=== PATIENT | male | born 1950 | race Caucasian/White ===

== ENCOUNTER 2017-08-15 11:27 | Inpatient (IN) | payer OTHER ==
[~2017-08-15] VITALS: Ht 190.5 cm; Wt 128.8 kg
--- NOTE | 2017-08-15 11:27 | NUR ---
[id number] FROM [facility]:SOB, Hx OF PNEUMONIA. ON IV ATB THERAPY. PT HAS BARRON PICC LINE.
[2017-08-15] MEDS ORDERED: Magnesium 1GM/D5W 100ML PREMIX 200 ML IV ONE ×2 (11:35→12:19)
[2017-08-15] MEDS ORDERED: methylPREDNISolone SOD SUCC 125 MG/2ML VIAL IV ONE (12:00)
[2017-08-15] MEDS ORDERED: ALBUTEROL FS 2.5 MG/3 ML VIAL.NEB NEB ONE (12:00)
[2017-08-15] MEDS ORDERED: IPRATROPIUM NEB FS 0.5 MG/2.5 ML AMPUL.NEB NEB ONE (12:00)
[2017-08-15 12:05] LABS: BASOPHILS # (AUTO) 0.1 /CMM (0.0-0.2); BASOPHILS % (AUTO) 1.2 % (0.0-2.0); EOSINOPHILS % (AUTO) 0.2 % (0.0-6.0); HEMATOCRIT 35 % (39-51); HEMOGLOBIN 12.1 g/dL (13.5-17.5); LYMPHOCYTES # (AUTO) 1.1 /CMM (0.8-4.8); LYMPHOCYTES % (AUTO) 13.4 % (20.0-44.0); MEAN CORPUSCULAR HEMOGLOBIN 31 PG (26.0-33.0); MEAN CORPUSCULAR HGB CONC 34 g/dl (31.0-36.0); MEAN CORPUSCULAR VOLUME 90 fL (80-96); MONOCYTES # (AUTO) 0.4 /CMM (0.1-1.30); MONOCYTES % (AUTO) 5.2 % (2.0-12.0); PLATELET COUNT (AUTO) 172 /CMM (150-450); RDW COEFFICIENT OF VARIATION 13.8 (11.5-15.0); RED BLOOD CELL COUNT(AUTO) 3.92 MIL/uL (4.5-6.0); WHITE BLOOD COUNT (AUTO) 8.6 K/uL (4.3-11.0)
[2017-08-15 12:13] LABS: POTASSIUM 3.7 mmol/L (3.5-5.1)
[2017-08-15 12:14] LABS: CREATININE 1.1 mg/dL (0.6-1.3)
[2017-08-15] MEDS ORDERED: methylPREDNISolone SOD SUCC 125 MG/2ML VIAL ONE (12:20)
[2017-08-15 12:22] LABS: TROPONIN I 0.063 ng/mL (0.00-0.056)
[2017-08-15 12:26] LABS: ALBUMIN 2.7 g/dL (3.4-5.0); BILIRUBIN,DIRECT 0.2 mg/dL (0.0-0.2); BILIRUBIN,TOTAL 0.8 mg/dL (0.2-1.0); TOTAL PROTEIN, SERUM 6.2 g/dL (6.4-8.2)
[2017-08-15] MEDS ORDERED: IPRATROPIUM NEB FS 0.5 MG/2.5 ML AMPUL.NEB ONE (12:35)
[2017-08-15] MEDS ORDERED: ALBUTEROL FS 2.5 MG/3 ML VIAL.NEB ONE (12:35)
[2017-08-15] MEDS ORDERED: MORPHINE SULFATE INJ 4 MG/ML DISP.SYRIN ONE (13:27)
[2017-08-15] MEDS ORDERED: ASPIRIN 325 MG TABLET ONE (13:27)
[2017-08-15] MEDS ORDERED: ASPIRIN 325 MG TABLET PO ONE (13:30)
[2017-08-15] MEDS ORDERED: MORPHINE SULFATE INJ 2 MG/ML DISP.SYRIN IV ONE (13:30)
[2017-08-15] MEDS ORDERED: FUROSEMIDE 40 MG/4 ML VIAL IV ONE (14:00)
[2017-08-15] MEDS ORDERED: FUROSEMIDE 40 MG/4 ML VIAL ONE (14:08)
--- NOTE | 2017-08-15 14:56 | NUR ---
DR ASTUDILLO WAS PAGED
[2017-08-15] MEDS ORDERED: INSU100V27 SQ (14:58)
[2017-08-15] MEDS ORDERED: TIOT18CA3 IH (14:58)
[2017-08-15] MEDS ORDERED: CLOP75TA15 PO (14:58)
[2017-08-15] MEDS ORDERED: FENO160T PO (14:58)
[2017-08-15] MEDS ORDERED: AMLO10TA2 PO (14:58)
[2017-08-15] MEDS ORDERED: BUDE10.2 INH (14:58)
[2017-08-15] MEDS ORDERED: FURO-145 PO (14:58)
[2017-08-15] MEDS ORDERED: NYST5ORA PO (14:58)
[2017-08-15] MEDS ORDERED: ISOS30TA6 PO (14:58)
[2017-08-15] MEDS ORDERED: LOSA100T15 PO (14:58)
[2017-08-15] MEDS ORDERED: MORP30TA59 PO ×2 (14:58)
[2017-08-15] MEDS ORDERED: POTA10TA15 PO (14:58)
[2017-08-15] MEDS ORDERED: HYDR-4076 PO (14:58)
[2017-08-15] MEDS ORDERED: RANO10003 PO (14:58)
[2017-08-15] MEDS ORDERED: METH4TAB3 PO (14:58)
[2017-08-15] MEDS ORDERED: POTA10TA21 PO (14:58)
[2017-08-15] MEDS ORDERED: INSU100I30 SQ (14:58)
[2017-08-15] MEDS ORDERED: BUME1TAB4 PO (14:58)
[2017-08-15] MEDS ORDERED: ATOR20TA PO (14:58)
[2017-08-15] MEDS ORDERED: ASPI-1169 PO (14:58)
[2017-08-15] MEDS ORDERED: CARV6.252 PO (14:58)
[2017-08-15] MEDS ORDERED: PANT40TA2 PO (14:58)
[2017-08-15 16:00] VITALS: BP 107/65
[2017-08-15] MEDS ORDERED: DEXTROSE 50%-WATER 50 ML DISP.SYRIN IV PRN (16:00)
[2017-08-15] MEDS ORDERED: MORPHINE SULFATE SR 30 MG TABLET.SA PO SCH ×3 (16:00→16:15)
[2017-08-15] MEDS ORDERED: predniSONE 20 MG TABLET PO SCH (16:00)
[2017-08-15] MEDS ORDERED: LEVALBUTEROL HCL NEB 1.25 MG/0.5 ML VIAL.NEB NEB SCH (16:00)
[2017-08-15] MEDS ORDERED: PANTOPRAZOLE 40 MG TABLET.DR PO SCH ×2 (16:00→16:15)
[2017-08-15] MEDS ORDERED: CLOPIDOGREL BISULFATE 75 MG TABLET PO SCH (16:00)
[2017-08-15] MEDS ORDERED: AMLODIPINE BESYLATE 10 MG TABLET PO SCH (16:00)
[2017-08-15] MEDS ORDERED: ASPIRIN 81 MG TAB.CHEW PO SCH (16:00)
[2017-08-15] MEDS ORDERED: TAMSULOSIN 0.4 MG CAP.SR.24H PO ONE (16:00)
[2017-08-15] MEDS ORDERED: IPRATROPIUM NEB FS 0.5 MG/2.5 ML AMPUL.NEB NEB SCH (16:00)
[2017-08-15] MEDS ORDERED: ISOSORBIDE MONONITRATE (30MG) 30 MG TAB.SR.24H PO SCH (16:00)
[2017-08-15] MEDS ORDERED: ACETAMINOPHEN ES 500 MG TABLET PO PRN (16:00)
--- NOTE | 2017-08-15 16:00 | NUR ---
[facility] COURT REPORTER/ADMISSION NOTES PT. WAS ADMITTED FROM ER IN MEDICALLY STABLE CONDITION. A&OX4. NO S/S OF ACUTE DISTRESS. VITAL SIGNS WNL. WILL PLACE PT. ON TELE MONITOR, AND CONTINUE TO ASSESS AND MONITOR.
[2017-08-15] MEDS ORDERED: CARVEDILOL 6.25 MG TABLET PO SCH ×2 (17:00)
[2017-08-15] MEDS ORDERED: NYSTATIN (PYXIS) 500,000 UNIT/5 ML ORAL.SUSP PO SCH (17:00)
[2017-08-15] MEDS ORDERED: FUROSEMIDE 40 MG/4 ML VIAL IV SCH (17:00)
[2017-08-15] MEDS ORDERED: hydrALAZINE HCL 10 MG TABLET PO PRN (18:00)
[2017-08-15] MEDS ORDERED: PIPERACILLIN /TAZOBACTAM 3.375 G in IV D5W 50 ML IV SCH (18:00)
[2017-08-15] MEDS: NYSTATIN (PYXIS) 500,000 UNIT/5 ML ORAL.SUSP PO SCH ×2 (18:22→21:26)
[2017-08-15] MEDS: FUROSEMIDE 40 MG/4 ML VIAL IV SCH (18:22)
[2017-08-15] MEDS: POTASSIUM CITRATE 5 MEQ TABLET.SA PO SCH (18:24)
[2017-08-15] MEDS: BLOOD SUGAR DIAGNOSTIC 1 EACH STRIP VI SCH ×2 (18:27→21:33)
[2017-08-15] MEDS: INSULIN REGULAR, HUMAN 100 UNIT/ML 3 ML VIAL SQ PRN (18:33)
[2017-08-15] MEDS: TAMSULOSIN 0.4 MG CAP.SR.24H PO SCH (18:51)
[2017-08-15] MEDS: MORPHINE SULFATE SR 30 MG TABLET.SA PO PRN (18:53)
--- NOTE | 2017-08-15 19:30 | NUR ---
INDEPENDENT DRIVER INITIAL NOTES PT IS IN BED AWAKE AND ALERT, ABLE TO MAKE NEEDS KNOWN. ON TELE MONITOR SHOWING SR 79. PT IS BREATHING SHALLOW, WITH NO SIGNS OF DISTRESS ON 2L NC. BARRON PICC LINE INTACT AND PATENT ON SL . BED IS IN LOW AND LOCKED POSITION, CALL LIGHT WITHIN REACH, WILL CONTINUE TO MONITOR PT
[2017-08-15 20:00] VITALS: BP 126/65
--- NOTE | 2017-08-15 20:00 | NUR ---
TALENT ACQUISITION ADMINISTRATOR/CLOSING NOTES PT. IN BED A&OX3. BREATHING UNLABORED ON OXYGEN AT 2L/MIN VIA NASAL CANNULA. NO S/S OF ACUTE DISTRESS. IV ACCESS ON RIGHT UPPER ARM CENTRAL LINE. BED IS IN LOWEST AND LOCKED POSITION. 2 SIDE RAILS UP. CALL LIGHT WITHIN REACH. ALL NEEDS MET. WILL ENDORSE REPORT TO NURSE.
[2017-08-15] MEDS: ALBUTEROL FS 2.5 MG/0.5 ML VIAL.NEB NEB SCH ×2 (20:19→23:43)
[2017-08-15] MEDS: IPRATROPIUM NEB FS 0.5 MG/2.5 ML AMPUL.NEB NEB SCH ×2 (20:19→23:43)
[2017-08-15] MEDS: ATORVASTATIN 10 MG TABLET PO SCH (21:25)
[2017-08-15] MEDS: INSULIN DETEMIR 100 UNIT/ML CARTRIDGE SQ SCH (21:33)
[2017-08-15] MEDS: *INSULIN REGULAR(HUMULIN R)HUM 100 UNIT/ML VIAL SQ PRN (21:36)
[2017-08-15] MEDS: LOSARTAN POTASSIUM 50 MG TABLET PO SCH (21:41)
[2017-08-15] MEDS: PIPERACILLIN /TAZOBACTAM 3.375 G in IV D5W 50 ML IV SCH ×2 (21:41→23:28)
--- NOTE | 2017-08-15 21:45 | NUR ---
MS RN NOTES MACY RUSSO, PT BP TREND ON FLOOR WAS LOW WITH THE HIGHEST AT 126/65. WILL CONTINUE TO MONITOR PT
[2017-08-16] VITALS: BP 143/80
[2017-08-16] MEDS: MORPHINE SULFATE SR 30 MG TABLET.SA PO PRN (02:01)
[2017-08-16 04:00] VITALS: BP 132/68
[2017-08-16] MEDS: PIPERACILLIN /TAZOBACTAM 3.375 G in IV D5W 50 ML IV SCH ×4 (05:47→23:16)
[2017-08-16] MEDS: BLOOD SUGAR DIAGNOSTIC 1 EACH STRIP VI SCH ×4 (05:52→21:15)
[2017-08-16] MEDS: INSULIN REGULAR, HUMAN 100 UNIT/ML 3 ML VIAL SQ PRN (06:13)
--- NOTE | 2017-08-16 06:34 | NUR ---
[facility] REPORTER CLOSING NOTES PT IS IN BED SLEEPING, EASILY AROUSED. ABLE TO MAKE NEEDS KNOWN. DENIES PAIN AT THIS TIME. TELE MONITOR SHOWING SR 72 WITH OCCASIONAL PVC'S. ALL NEEDS WERE ANTICIPATED AND MET. BED IS IN LOW AND LOCKED POSITION, CALL LIGHT WITHIN REACH. WILL ENDORSE TO DAYSHIFT.
[2017-08-16 06:45] LABS: EOSINOPHILS % (AUTO) 0.1 % (0.0-6.0); HEMATOCRIT 32 % (39-51); HEMOGLOBIN 11.2 g/dL (13.5-17.5); LYMPHOCYTES # (AUTO) 0.3 /CMM (0.8-4.8); LYMPHOCYTES % (AUTO) 3.6 % (20.0-44.0); MEAN CORPUSCULAR HEMOGLOBIN 31 PG (26.0-33.0); MEAN CORPUSCULAR HGB CONC 35 g/dl (31.0-36.0); MEAN CORPUSCULAR VOLUME 90 fL (80-96); MONOCYTES # (AUTO) 0.4 /CMM (0.1-1.30); MONOCYTES % (AUTO) 5.2 % (2.0-12.0); NEUTROPHILS # (AUTO) 6.6 /CMM (1.8-8.9); NEUTROPHILS % (AUTO) 91.1 % (43.0-81.0); PLATELET COUNT (AUTO) 146 /CMM (150-450); RDW COEFFICIENT OF VARIATION 13.8 (11.5-15.0); RED BLOOD CELL COUNT(AUTO) 3.58 MIL/uL (4.5-6.0); WHITE BLOOD COUNT (AUTO) 7.3 K/uL (4.3-11.0)
[2017-08-16 07:01] LABS: CALCIUM, SERUM 8.8 mg/dL (8.5-10.1); CREATININE 1.1 mg/dL (0.6-1.3); POTASSIUM 3.8 mmol/L (3.5-5.1)
--- NOTE | 2017-08-16 07:10 | NUR ---
RN NOTES: PATIENT RESTING IN BED. NONLABORED BREATHIGN NOTED ON 2L NASAL CANNULA. NO SIGNS OF DISTRESS NOTED. PATIENT AOX4. PATIENT ON TELE SINUS WITH PVCS. BED IN LOWEST LOCKED POSITION. CALL LIGHT WITHIN REACH. WILL CONTINUE TO MONITOR
[2017-08-16 07:15] LABS: ALBUMIN 2.5 g/dL (3.4-5.0); BILIRUBIN,TOTAL 0.6 mg/dL (0.2-1.0); TOTAL PROTEIN, SERUM 6.1 g/dL (6.4-8.2)
[2017-08-16 08:00] VITALS: BP 140/69
[2017-08-16] MEDS: ALBUTEROL FS 2.5 MG/0.5 ML VIAL.NEB NEB SCH ×2 (08:24→14:42)
[2017-08-16] MEDS: IPRATROPIUM NEB FS 0.5 MG/2.5 ML AMPUL.NEB NEB SCH ×2 (08:24→14:42)
[2017-08-16] MEDS ORDERED: PANTOPRAZOLE 40 MG TABLET.DR PO SCH (08:30)
[2017-08-16] MEDS: POTASSIUM CITRATE 5 MEQ TABLET.SA PO SCH ×2 (09:00→17:00)
[2017-08-16] MEDS: predniSONE 20 MG TABLET PO SCH (09:00)
[2017-08-16] MEDS: TAMSULOSIN 0.4 MG CAP.SR.24H PO SCH (09:00)
[2017-08-16] MEDS ORDERED: Ranolazine (Ranexa) 1,000 MG PO SCH ×2 (09:00)
[2017-08-16] MEDS: FUROSEMIDE 40 MG/4 ML VIAL IV SCH (09:00)
[2017-08-16] MEDS: ISOSORBIDE MONONITRATE (30MG) 30 MG TAB.SR.24H PO SCH (09:00)
[2017-08-16] MEDS: CARVEDILOL 12.5 MG TABLET PO SCH ×2 (09:00→21:00)
[2017-08-16] MEDS ORDERED: Fenofibrate 160 MG PO SCH ×2 (09:00)
[2017-08-16] MEDS ORDERED: Budesonide/Formoterol Fumarate (Symbicort 160-4.5 Mcg) INH SCH (09:00)
[2017-08-16] MEDS: INSULIN DETEMIR 100 UNIT/ML CARTRIDGE SQ SCH ×2 (09:00→21:17)
[2017-08-16] MEDS: AMLODIPINE BESYLATE 10 MG TABLET PO SCH (09:00)
[2017-08-16] MEDS: NYSTATIN (PYXIS) 500,000 UNIT/5 ML ORAL.SUSP PO SCH ×4 (09:00→21:14)
[2017-08-16] MEDS: ASPIRIN 81 MG TAB.CHEW PO SCH (09:02)
[2017-08-16] MEDS: CLOPIDOGREL BISULFATE 75 MG TABLET PO SCH (09:03)
[2017-08-16 09:32] LABS: LYMPHOCYTES % (MANUAL) 5 % (16-48); MONOCYTES % (MANUAL) 5 % (0-11.0); NEUTROPHILS % (MANUAL) 90 (42-76)
[2017-08-16] MEDS: *INSULIN REGULAR(HUMULIN R)HUM 100 UNIT/ML VIAL SQ PRN ×3 (12:19→21:16)
[2017-08-16 16:00] VITALS: BP 118/64
[2017-08-16] MEDS: FLUTICASONE/VILANTEROL 1 EACH BLST.W.DEV IH SCH (17:00)
[2017-08-16] MEDS: FUROSEMIDE 40 MG TABLET PO SCH (17:02)
--- NOTE | 2017-08-16 19:20 | NUR ---
RN NOTES: PATIENT RESTING IN BED. NONLABORED BREATHIGN NOTED ON 2L NASAL CANNULA. NO SIGNS OF DISTRESS NOTED. PATIENT AOX4. PATIENT ON TELE SINUS WITH PVCS. BED IN LOWEST LOCKED POSITION. CALL LIGHT WITHIN REACH. BARRON PICC PATENT AND INTACT. DURING SHIFT, PATIENT COMPLAINED OF 9/10 CHEST PAIN. VS WNL. PATIENT STATES THAT THIS IS A CHRONIC ISSUE FOR HIM, AND THAT THE ONLY THING THAT HELPS IS IV MORPHINE. PATIENT STATES THAT IT DOES RADIATE TO BACK SOMETIMES. TROPONIN NEGATIVE, PATIENT SINUS ON MONITOR. PATIENT OFFERED TYLENOL. PATIENT REFUSED. HE ALSO REFUSED MORNING MEDICATIONS EXCEPT FOR ASPIRIN AND PLAVIX. BENEFITS AND RISKS EXPLAINED BY ME. DR MATIAS ALSO DISCUSSED MEDICATIONS BENEFITS WITH PATIENT. DR GILMORE NOTIFIED OF THIS. SPOKE WITH PATIENT. PATIENT AGREED TO CONTINUE TREATMENT PATIENT REFUSED UROCIT,STATING THAT HE DOES NOT TAKE IT AT HOME, BENEFITS AND RISKS EXPLAINED TO PATIENT WELL. ENDORSED TO NEXT SHIFT
--- NOTE | 2017-08-16 19:30 | NUR ---
MS RN INITIAL NOTES PT IS IN BED AWAKE AND ALERT, ABLE TO MAKE NEEDS KNOWN. PT IS BREATHING EVENLY AND UNLABORED. NO SIGNS OF SOB OR DISTRESS. BARRON PICC LINE INTACT AND PATENT ON SL . COMPLAINT OF LEFT LEG PAIN 5/10, ADVISED PT THAT ONLY TYLENOL IS ORDERED FOR HIM. HAS ALREADY SPOKEN WITH PT REGARDING NO MORPHINE IV ORDER FOR HIM. BED IS IN LOW AND LOCKED POSITION, CALL LIGHT WITHIN REACH, WILL CONTINUE TO MONITOR PT
[2017-08-16 20:00] VITALS: BP 106/75
[2017-08-16] MEDS ORDERED: FLUTICASONE/SALMETEROL DISKUS IH SCH (21:00)
[2017-08-16] MEDS: ATORVASTATIN 10 MG TABLET PO SCH (21:14)
[2017-08-16] MEDS: LOSARTAN POTASSIUM 50 MG TABLET PO SCH (21:14)
[2017-08-17] MEDS: ALBUTEROL FS 2.5 MG/0.5 ML VIAL.NEB NEB SCH ×2 (00:04→09:28)
[2017-08-17] MEDS: IPRATROPIUM NEB FS 0.5 MG/2.5 ML AMPUL.NEB NEB SCH ×2 (00:04→09:28)
[2017-08-17] MEDS: PIPERACILLIN /TAZOBACTAM 3.375 G in IV D5W 50 ML IV SCH ×2 (05:54→12:50)
[2017-08-17] MEDS: BLOOD SUGAR DIAGNOSTIC 1 EACH STRIP VI SCH ×2 (05:59→12:50)
--- NOTE | 2017-08-17 06:08 | NUR ---
MS RN CLOSING NOTES PT IS IN BED AWAKE AND ALERT. ABLE TO MAKE NEEDS KNOWN. DENIES PAIN AT THIS TIME. NO SIGNS OF SOB OR DISTRESS, BREATHING EVENLY AND UNLABORED ON 2L NC. ALL NEEDS WERE ANTICIPATED AND MET. BED IS IN LOW AND LOCKED POSITION, CALL LIGHT WITHIN REACH. WILL ENDORSE TO DAYSHIFT.
[2017-08-17 07:56] LABS: BASOPHILS % (AUTO) 0.3 % (0.0-2.0); EOSINOPHILS % (AUTO) 0.3 % (0.0-6.0); HEMATOCRIT 31 % (39-51); HEMOGLOBIN 10.7 g/dL (13.5-17.5); LYMPHOCYTES % (AUTO) 15.1 % (20.0-44.0); MEAN CORPUSCULAR HEMOGLOBIN 32 PG (26.0-33.0); MEAN CORPUSCULAR HGB CONC 34 g/dl (31.0-36.0); MEAN CORPUSCULAR VOLUME 93 fL (80-96); MONOCYTES # (AUTO) 0.1 /CMM (0.1-1.30); MONOCYTES % (AUTO) 1.6 % (2.0-12.0); NEUTROPHILS # (AUTO) 5.5 /CMM (1.8-8.9); NEUTROPHILS % (AUTO) 82.7 % (43.0-81.0); PLATELET COUNT (AUTO) 123 /CMM (150-450); RDW COEFFICIENT OF VARIATION 14.9 (11.5-15.0); RED BLOOD CELL COUNT(AUTO) 3.38 MIL/uL (4.5-6.0); WHITE BLOOD COUNT (AUTO) 6.7 K/uL (4.3-11.0)
[2017-08-17 08:00] VITALS: BP 155/81
[2017-08-17 08:32] LABS: CALCIUM, SERUM 8.7 mg/dL (8.5-10.1); CREATININE 0.8 mg/dL (0.6-1.3)
[2017-08-17] MEDS ORDERED: FENOFIBRATE NANOCRYS (145 MG) 145 MG TABLET PO SCH (09:00)
[2017-08-17] MEDS: CLOPIDOGREL BISULFATE 75 MG TABLET PO SCH (09:11)
[2017-08-17] MEDS: TAMSULOSIN 0.4 MG CAP.SR.24H PO SCH (09:11)
[2017-08-17] MEDS: ASPIRIN 81 MG TAB.CHEW PO SCH (09:11)
[2017-08-17] MEDS: NYSTATIN (PYXIS) 500,000 UNIT/5 ML ORAL.SUSP PO SCH ×2 (09:13→13:00)
[2017-08-17] MEDS: predniSONE 20 MG TABLET PO SCH (09:13)
[2017-08-17] MEDS: AMLODIPINE BESYLATE 10 MG TABLET PO SCH (09:13)
[2017-08-17] MEDS: CARVEDILOL 12.5 MG TABLET PO SCH (09:14)
[2017-08-17 09:15] VITALS: BP 155/81
[2017-08-17] MEDS: ISOSORBIDE MONONITRATE (30MG) 30 MG TAB.SR.24H PO SCH (09:15)
[2017-08-17] MEDS: FUROSEMIDE 40 MG TABLET PO SCH (09:15)
[2017-08-17] MEDS: FLUTICASONE/VILANTEROL 1 EACH BLST.W.DEV IH SCH (09:15)
[2017-08-17] MEDS ORDERED: CARV6.252 PO (09:18)
[2017-08-17] MEDS: POTASSIUM CITRATE 5 MEQ TABLET.SA PO SCH (09:53)
[2017-08-17] MEDS: INSULIN DETEMIR 100 UNIT/ML CARTRIDGE SQ SCH (10:02)
[2017-08-17] MEDS: INSULIN REGULAR, HUMAN 100 UNIT/ML 3 ML VIAL SQ PRN (12:55)
[2017-08-17] MEDS: MORPHINE SULFATE SR 30 MG TABLET.SA PO PRN (13:02)
--- NOTE | 2017-08-17 13:05 | NUR ---
MS TRANSFER NOTE: RECEVEID PT FROM [facility] PATTERN ASSEMBLER ON MS FLOOR.A/OX4. BRP WITH WALKER. SKIN INTACT. CCHO DIET. INSULIN GIVEN PER ORDER. BARRON PICC LINE #18. SITE CLEAR AND PATENT. MORNING MEDS WHERE NOT GIVEN. AFTERNOON MEDS. PT SCHEDULED FOR D/C TODAY.
--- NOTE | 2017-08-17 14:34 | NUR ---
MS RN: DISCHARGE NOTE PT DISCHARGED TO [facility] FOR CONTINUING CARE. RECEIVED PT AT 1300 FROM [employer] [employer] [facility]. PT TOOK ALL AFTERNOON MEDICATIONS ON TIME. NO ADVERSE REACTIONS NOTED. FLOW SHEET DONE BASED ON ASSESSMENT DONE AFTER RECEIVING REPORT. PT STABLE. R UA PICCLINE REMOVED PER MD MATIAS ORDER. ALL DISCHARGE INFORMATION PROVIDED TO PT. SIGNED BY PATIENT. ALL VALUABLES ACCOUNTED FOR. GAVE REPORT TO ROBERTO AT FACILITY. BP 106/54, PULSE 60, RR 18, 02 99% ON 2L NC. NO DISTRESS NOTED. NO SOB NOTED. LEFT VIA AMBULANCE WITH TWO EMT.
== END 2017-08-17 14:30 | DRG 280 ==
LOC: ER 11:30 → TELE 16:06 → MED 08-16 16:09
PROVIDERS: ADMIT Internal Medicine; ATTEND Internal Medicine
DX: I21.4 Non-ST elevation (NSTEMI) myocardial infarction (principal); I50.23 Acute on chronic systolic (congestive) heart failure; E11.9 Type 2 diabetes mellitus without complications; Z95.1 Presence of aortocoronary bypass graft; J44.1 Chronic obstructive pulmonary disease with (acute) exacerbation; E66.9 Obesity, unspecified; E78.5 Hyperlipidemia, unspecified; F17.200 Nicotine dependence, unspecified, uncomplicated; I11.0 Hypertensive heart disease with heart failure; I25.119 Atherosclerotic heart disease of native coronary artery with unspecified angina pectoris; I25.2 Old myocardial infarction; N40.0 Benign prostatic hyperplasia without lower urinary tract symptoms; Z87.01 Personal history of pneumonia (recurrent); Z87.442 Personal history of urinary calculi; Z79.4 Long term (current) use of insulin; Z68.35 Body mass index [BMI] 35.0-35.9, adult
CPT/HCPCS: 36415; 71045-TC; 80048-TC; 80053-TC; 80061-TC; 80076-TC; 82962-TC; 83880; 84484-TC; 85025-TC; 87081-TC; A4606; J1815; J1940; J2270; J2543; J2930; J3475; J7030; J7050; J7060; Z7610